=== PATIENT | male | born 1985 | race Caucasian/White ===

== ENCOUNTER 2018-05-13 04:11 | Emergency (ER) | payer MEDICAID ==
[~2018-05-13] VITALS: Ht 180.3 cm; Wt 95.3 kg
[~2018-05-13 04:11] MED LIST: DICY10CA12
[2018-05-13] MEDS ORDERED: KETOROLAC TROMETH 30 MG/ML 1ML VIAL IV ONE (04:45)
[2018-05-13 07:08] LABS: Basophils # (auto) 0 uL; Basophils % (auto) 0.4 % (0.0-2.0); Eosinophils # (auto) 0.1 uL; Eosinophils % (auto) 1.2 % (0.0-7.0); Hematocrit 46.6 % (41.0-53.0); Lymphocytes # (auto) 2.4 uL; Mean Corpuscular Hemoglobin 30.7 pg (28.0-32.0); Mean Corpuscular Hgb Conc. 34.3 g/dL (32.0-36.0); Mean Corpuscular Volume 89.3 fL (80.0-100.0); Monocytes # (auto) 0.9 uL; Monocytes % (auto) 8.4 % (0.0-12.0); Neutrophils # (auto) 7.3 uL; Platelet Count (auto) 269 10^3/uL (140-450); Red Blood Cells 5.21 10^6/uL (4.5-5.90); Red Cell Distribution Width 14.1 % (11.8-14.3); White Blood Cell 10.8 10^3/uL (4.4-10.8)
[2018-05-13 07:33] LABS: Potassium 4.2 mmol/L (3.5-5.1)
[2018-05-13 07:42] LABS: Albumin 3.7 g/dL (3.4-5.0); BUN/Creatinine Ratio 14.9; Bilirubin, Total 0.3 mg/dL (0.2-1.0); Calcium 8.6 mg/dL (8.5-10.1); Total Protein 8.2 g/dL (6.4-8.2)
[2018-05-13 07:45] LABS: Urine Bacteria NONE SEEN /hpf (None Seen); Urine Blood 2+ /uL (Negative); Urine Mucus FEW (None Seen); Urine Specific Gravity 1.026 (1.001-1.035); Urine WBC 2 /hpf (0 - 3)
[2018-05-13] MEDS ORDERED: SODIUM CHLORIDE 0.9% 1,000 ML IVB ONE (08:24)
[2018-05-13] MEDS ORDERED: PROMETHAZINE HCL 25 MG/ML 1ML IV PRN (08:30)
[2018-05-13] MEDS ORDERED: TAMSULOSIN HYDROCHLORIDE 0.4 MG CAP PO ONE (08:30)
[2018-05-13] MEDS ORDERED: HYDROmorphone HCL 2 MG/ML VL IV ONE (08:30)
[2018-05-13] MEDS ORDERED: PROMETHAZINE HCL 25 MG/ML 1ML ONE (08:31)
[2018-05-13 10:10] VITALS: BP 117/68
== END 2018-05-13 12:13 | disposition home or self-care (01) ==
LOC: ER 04:11
DX: N20.1 Calculus of ureter (principal); N13.30 Unspecified hydronephrosis; K76.0 Fatty (change of) liver, not elsewhere classified; E78.5 Hyperlipidemia, unspecified; R11.2 Nausea with vomiting, unspecified
CPT/HCPCS: 36415; 74176; 80053; 81001; 85025; 96361; 96374; 96375; 99284; J1170; J1885; J2550; J7030

== ENCOUNTER 2019-07-14 18:10 | Inpatient (IN) | payer MEDICAID ==
[~2019-07-14] VITALS: Ht 180.3 cm; Wt 111.9 kg
[2019-07-14 18:52] LABS: Urine Bacteria NONE SEEN /hpf (None Seen); Urine Blood 1+ /uL (Negative); Urine Mucus FEW (None Seen); Urine Specific Gravity 1.026 (1.001-1.035); Urine WBC 1 /hpf (0 - 3)
[2019-07-14 18:58] LABS: Basophils # (auto) 0.1 10 ^3/uL (0-0.2); Basophils % (auto) 0.7 % (0.0-2.0); Eosinophils # (auto) 0.3 10 ^3/uL (0-0.8); Eosinophils % (auto) 3.3 % (0.0-7.0); Hematocrit 45.3 % (41.0-53.0); Hemoglobin 15.6 g/dL (13.5-17.5); Lymphocytes # (auto) 3.6 10 ^3/uL (0.4-5.4); Lymphocytes % (auto) 38.6 % (10.0-50.0); Mean Corpuscular Hemoglobin 31.1 pg (28.0-32.0); Mean Corpuscular Hgb Conc. 34.4 g/dL (32.0-36.0); Mean Corpuscular Volume 90.2 fL (80.0-100.0); Monocytes % (auto) 10.6 % (0.0-12.0); Neutrophils # (auto) 4.4 10 ^3/uL (1.6-8.6); Neutrophils % (auto) 46.8 % (37.0-80.0); Nucleated Red Blood Cells % 0.1 %; Platelet Count (auto) 265 10^3/uL (140-450); Red Blood Cells 5.02 10^6/uL (4.5-5.90); Red Cell Distribution Width 13.9 % (11.8-14.3); White Blood Cell 9.4 10^3/uL (4.4-10.8)
[2019-07-14 19:20] LABS: Albumin 3.5 g/dL (3.4-5.0); Calcium 8.7 mg/dL (8.5-10.1); Potassium 4.1 mmol/L (3.5-5.1)
[2019-07-14 19:23] LABS: BUN/Creatinine Ratio 14.9; Bilirubin, Total 0.4 mg/dL (0.2-1.0); Total Protein 8.7 g/dL (6.4-8.2)
[2019-07-14] MEDS ORDERED: LACTATED RINGER'S 1,000 ML IV ONE (20:45)
[2019-07-14] MEDS ORDERED: KETOROLAC TROMETH 15 mg/ml 1ML VL IV ONE (20:45)
[2019-07-14] MEDS ORDERED: ONDANSETRON HCL 4 MG/2 ML VIAL IV ONE (20:45)
[2019-07-14] MEDS ORDERED: LACTATED RINGER S IV ONE (20:45)
[2019-07-14] MEDS ORDERED: TAMSULOSIN HYDROCHLORIDE 0.4 MG CAP PO ONE ×2 (20:45→21:00)
[2019-07-14] MEDS ORDERED: SODIUM CHLORIDE 0.9% 1,000 ML IV ONE (20:45)
[2019-07-14] MEDS ORDERED: PANTOPRAZOLE 40 MG/10 ML VIAL INJ IV ONE (21:00)
[2019-07-14] MEDS ORDERED: LORazepam 0.5 MG TAB PO PRN (21:00)
[2019-07-14] MEDS ORDERED: MORPHINE SULF INJ 2 MG/ML SYRINGE 1ML IV PRN (21:00)
[2019-07-14] MEDS ORDERED: KETOROLAC TROMETH 15 mg/ml 1ML VL IV PRN (21:00)
[2019-07-14] MEDS ORDERED: CIPROFLOXACIN 400MG/200ML 200 ML IV ONE (21:00)
[2019-07-14] MEDS ORDERED: NITROGLYCERIN 0.4 MG SL TAB SL PRN ×2 (21:00)
[2019-07-14] MEDS ORDERED: IBUPROFEN 800 MG TAB PO PRN (21:00)
[2019-07-14] MEDS: HYDROmorphone HCL 2 MG/ML VL IV PRN (21:04)
[2019-07-14] MEDS ORDERED: cloNIDine HCL 0.1 MG TAB PO ONE (21:15)
[2019-07-14] MEDS ORDERED: cloNIDine HCL 0.1 MG TAB PO PRN (21:15)
[2019-07-14] MEDS ORDERED: KETOROLAC TROMETH 30 MG/ML 1ML VIAL ONE (21:36)
--- NOTE | 2019-07-14 22:45 | NUR ---
MS admit from ER ALONA CALLAHAN admitted to MS. Patient oriented to PEYTON KRAMER OCA, primary RN, unit, room, bed, and unit policies regarding patient care and visiting hours. Patient weighed by bedscale and encouraged to call if they need something. All questions and concerns addressed, patient verbalized understanding. Bed in lowest locked position, call light within reach, side rails up x2. Will continue to monitor Q1hr and PRN.
[2019-07-14 22:50] VITALS: BP 130/82
[2019-07-14] MEDS ORDERED: DEXTROSE (50%) 50ML SYRG IV PRN (23:00)
[2019-07-14] MEDS ORDERED: amLODIPine BESYLATE 5 MG TAB PO ONE (23:00)
[2019-07-14] MEDS: ACCU-CHEK COMFORT CURVE STRIP VI SCH (23:46)
[2019-07-14] MEDS: InsuLIN REG 1unit/0.01ml Soln (100units/ml) SC SCH (23:47)
[2019-07-15 05:00] VITALS: BP 133/74
[2019-07-15] MEDS: InsuLIN REG 1unit/0.01ml Soln (100units/ml) SC SCH (06:00)
[2019-07-15] MEDS ORDERED: FUROSEMIDE 20 MG/2 ML VIAL IV SCH (06:00)
[2019-07-15 06:17] LABS: Basophils # (auto) 0 10 ^3/uL (0-0.2); Basophils % (auto) 0.6 % (0.0-2.0); Eosinophils # (auto) 0.3 10 ^3/uL (0-0.8); Eosinophils % (auto) 3.6 % (0.0-7.0); Hematocrit 42.8 % (41.0-53.0); Hemoglobin 14.9 g/dL (13.5-17.5); Lymphocytes # (auto) 3.7 10 ^3/uL (0.4-5.4); Lymphocytes % (auto) 49.8 % (10.0-50.0); Mean Corpuscular Hemoglobin 31.5 pg (28.0-32.0); Mean Corpuscular Hgb Conc. 34.8 g/dL (32.0-36.0); Mean Corpuscular Volume 90.5 fL (80.0-100.0); Monocytes # (auto) 0.8 10 ^3/uL (0-1.3); Monocytes % (auto) 10.7 % (0.0-12.0); Neutrophils # (auto) 2.6 10 ^3/uL (1.6-8.6); Neutrophils % (auto) 35.3 % (37.0-80.0); Nucleated Red Blood Cells % 0.2 %; Platelet Count (auto) 224 10^3/uL (140-450); Red Blood Cells 4.73 10^6/uL (4.5-5.90); Red Cell Distribution Width 13.7 % (11.8-14.3); White Blood Cell 7.5 10^3/uL (4.4-10.8)
[2019-07-15] MEDS: ACCU-CHEK COMFORT CURVE STRIP VI SCH (06:22)
[2019-07-15] MEDS: ONDANSETRON HCL 4 MG/2 ML VIAL IV PRN ×3 (06:23→22:23)
[2019-07-15] MEDS: HYDROmorphone HCL 2 MG/ML VL IV PRN ×3 (06:23→22:23)
[2019-07-15 06:30] LABS: INR 1.07 (0.9-1.15); Partial Thromboplastin Time 29.3 sec (23.64-32.05)
--- NOTE | 2019-07-15 07:40 | NUR ---
Opening note. Patient alert and orientated x4. No SOB or distress noted at this time. POC discussed with patient. No questions at this time. Bed in lowest position. Side rails up x2. Call light within reach. Will continue to monitor.
[2019-07-15 08:00] VITALS: BP 142/82
[2019-07-15 08:39] LABS: Albumin 2.9 g/dL (3.4-5.0); Calcium 8.3 mg/dL (8.5-10.1); Magnesium 2.1 mg/dL (1.6-2.6); Potassium 4.5 mmol/L (3.5-5.1)
[2019-07-15 08:45] LABS: BUN/Creatinine Ratio 15.6; Bilirubin, Total 0.4 mg/dL (0.2-1.0); Total Protein 7.6 g/dL (6.4-8.2)
[2019-07-15] MEDS ORDERED: ENOXAPARIN SOD 40 MG/0.4 ML SYRINGE SC SCH (10:00)
[2019-07-15] MEDS ORDERED: CIPROFLOXACIN 400MG/200ML 200 ML IV SCH (10:00)
[2019-07-15] MEDS ORDERED: PANTOPRAZOLE 40 MG/10 ML VIAL INJ IV SCH (10:00)
[2019-07-15] MEDS: DOCUSATE SOD 100 MG CAP PO SCH (10:00)
[2019-07-15] MEDS: amLODIPine BESYLATE 5 MG TAB PO SCH (10:06)
[2019-07-15] MEDS: SODIUM CHLORIDE 0.9% 1,000 ML IV SCH ×2 (10:15→18:45)
[2019-07-15] MEDS: HYDROcodone-ACET 5/325MG TAB PO PRN (11:32)
[2019-07-15 12:01] VITALS: BP 113/67
[2019-07-15] MEDS ORDERED: ASPI-123 PO (14:31)
--- NOTE | 2019-07-15 15:52 | NUR ---
UROLOGY Cristobal Nance at bedside for Urology consult. New orders received and followed through. Plan of care discussed with patient, verbalized understanding.
[2019-07-15 16:54] VITALS: BP 122/71
[2019-07-15] MEDS: TAMSULOSIN HYDROCHLORIDE 0.4 MG CAP PO SCH (17:44)
--- NOTE | 2019-07-15 19:16 | NUR ---
Care endorsed to PERRY Ramsey, night nurse.
--- NOTE | 2019-07-15 19:30 | NUR ---
Opening Shift Note Assumed care of patient, awake and alert. No S/S of distress/SOB. Instructed on POC and to call for assist PRN. Bed in lowest locked position, call light within reach, side rails up x2. Will continue to monitor for changes Q1hr and PRN.
[2019-07-15 22:00] VITALS: BP 130/78
[2019-07-16] MEDS: SODIUM CHLORIDE 0.9% 1,000 ML IV SCH ×3 (02:15→18:11)
[2019-07-16 05:05] VITALS: BP 128/81
[2019-07-16] MEDS ORDERED: MANNITOL FTV 25% 12.5 GM/50 ML 50 ML IV ONE (06:00)
[2019-07-16 06:07] LABS: Basophils # (auto) 0 10 ^3/uL (0-0.2); Basophils % (auto) 0.4 % (0.0-2.0); Eosinophils # (auto) 0.3 10 ^3/uL (0-0.8); Eosinophils % (auto) 3.3 % (0.0-7.0); Hematocrit 42.9 % (41.0-53.0); Hemoglobin 14.8 g/dL (13.5-17.5); Lymphocytes # (auto) 2.6 10 ^3/uL (0.4-5.4); Lymphocytes % (auto) 33.7 % (10.0-50.0); Mean Corpuscular Hemoglobin 31.2 pg (28.0-32.0); Mean Corpuscular Hgb Conc. 34.5 g/dL (32.0-36.0); Mean Corpuscular Volume 90.5 fL (80.0-100.0); Monocytes # (auto) 0.9 10 ^3/uL (0-1.3); Monocytes % (auto) 11.2 % (0.0-12.0); Neutrophils % (auto) 51.4 % (37.0-80.0); Nucleated Red Blood Cells % 0.1 %; Platelet Count (auto) 214 10^3/uL (140-450); Red Blood Cells 4.74 10^6/uL (4.5-5.90); Red Cell Distribution Width 13.6 % (11.8-14.3); White Blood Cell 7.7 10^3/uL (4.4-10.8)
[2019-07-16 06:33] LABS: Potassium 4.5 mmol/L (3.5-5.1)
[2019-07-16 06:38] LABS: BUN/Creatinine Ratio 13.4; Calcium 8.4 mg/dL (8.5-10.1)
[2019-07-16 08:00] VITALS: BP 122/71
--- NOTE | 2019-07-16 08:00 | NUR ---
Opening note Assumed care of patient. Patient alert and orientated x4. POC and pain management discussed. Patient verbalized understanding.No questions at this time. Bed in lowest position, side rails up x2. call light within reach. Will continue to monitor.
[2019-07-16] MEDS: HYDROcodone-ACET 5/325MG TAB PO PRN ×3 (08:05→22:23)
[2019-07-16] MEDS: DOCUSATE SOD 100 MG CAP PO SCH (09:40)
[2019-07-16] MEDS: amLODIPine BESYLATE 5 MG TAB PO SCH (09:41)
[2019-07-16] MEDS: ONDANSETRON HCL 4 MG/2 ML VIAL IV PRN (09:57)
[2019-07-16] MEDS ORDERED: HYDROmorphone HCL 2 MG/ML VL IV PRN (10:45)
--- NOTE | 2019-07-16 10:53 | NUR ---
ROUNDS Dr Wolf at bedside for rounds, new orders received and followed through. Patient updated on plan of care, verbalized understanding.
[2019-07-16 12:00] VITALS: BP 130/70
[2019-07-16 16:54] VITALS: BP 115/77
[2019-07-16 16:59] VITALS: BP 133/70
[2019-07-16] MEDS: TAMSULOSIN HYDROCHLORIDE 0.4 MG CAP PO SCH (17:34)
--- NOTE | 2019-07-16 19:10 | NUR ---
Opening Shift Note Assumed care of patient, awake, alert and oriented x4, on room air with even and unlabored respirations, no S/S of distress/SOB or pain. Patient able to ambulate and turn independently, bed in lowest locked position, side rails up x2, and call light within reach. Instructed on POC and to call for assist PRN, will continue to monitor for changes Q1hr and PRN.
--- NOTE | 2019-07-16 19:12 | NUR ---
Care endorsed to PERRY Parker, night nurse.
[2019-07-16 22:00] VITALS: BP 131/72
[2019-07-17] MEDS: ONDANSETRON HCL 4 MG/2 ML VIAL IV PRN ×2 (00:02→08:50)
[2019-07-17] MEDS: SODIUM CHLORIDE 0.9% 1,000 ML IV SCH ×2 (00:03→09:26)
[2019-07-17 05:00] VITALS: BP 125/75
[2019-07-17 05:44] LABS: BUN/Creatinine Ratio 14.1; Calcium 8.4 mg/dL (8.5-10.1); Potassium 4.4 mmol/L (3.5-5.1)
[2019-07-17] MEDS: HYDROcodone-ACET 5/325MG TAB PO PRN (08:50)
[2019-07-17 09:00] VITALS: BP_SYST 132; BP_SYST 139; BP_DIAS 79; BP_DIAS 80
[2019-07-17] MEDS: amLODIPine BESYLATE 5 MG TAB PO SCH (09:25)
[2019-07-17] MEDS: DOCUSATE SOD 100 MG CAP PO SCH (09:25)
[2019-07-17 12:59] VITALS: BP 128/74
[2019-07-17 13:00] VITALS: BP 147/81
--- NOTE | 2019-07-17 14:32 | NUR ---
Discharge Went over discharge paperwork with patient. Gave prescriptions to patient. Removed IV intact with no problems. Med Surg patient, no telemetry box. Removed ID band. Patient left in private vehicle with all personal belongings.
== END 2019-07-17 14:35 | disposition home or self-care (01) | DRG 465 ==
LOC: ER 18:11 → OVERFLOW 18:12 → CENTRAL 22:37
PROVIDERS: ADMIT Hospitalist; ATTEND Internal Medicine
DX: N13.2 Hydronephrosis with renal and ureteral calculous obstruction (principal); N17.0 Acute kidney failure with tubular necrosis; K76.0 Fatty (change of) liver, not elsewhere classified; E66.9 Obesity, unspecified; R73.03 Prediabetes; I10 Essential (primary) hypertension; Z83.3 Family history of diabetes mellitus; Z87.442 Personal history of urinary calculi; M54.5 Low back pain; Z68.34 Body mass index [BMI] 34.0-34.9, adult
CPT/HCPCS: 36415; 74176; 80048; 80053; 80061; 81001; 82962; 83036; 83735; 84100; 85025; 85610; 85730; 96365; 96375; C9113; G0378; J1885; J2405

== ENCOUNTER 2019-09-27 22:20 | Inpatient (IN) | payer MEDICAID ==
[~2019-09-27] VITALS: Ht 180.3 cm; Wt 114.3 kg
[~2019-09-27 22:20] MED LIST changes: +ASPI-123 PO; -DICY10CA12
[2019-09-27] MEDS ORDERED: KETOROLAC TROMETH 30 MG/ML 1ML VIAL IV ONE (23:15)
[2019-09-27] MEDS ORDERED: HYDROmorphone HCL 2 MG/ML VL IV ONE (23:15)
[2019-09-27] MEDS ORDERED: ONDANSETRON HCL 4 MG/2 ML VIAL IV ONE (23:15)
[2019-09-27 23:43] LABS: Basophils # (auto) 0.1 10 ^3/uL (0-0.2); Basophils % (auto) 0.6 % (0.0-2.0); Eosinophils # (auto) 0 10 ^3/uL (0-0.8); Eosinophils % (auto) 0.2 % (0.0-7.0); Hematocrit 45.9 % (41.0-53.0); Hemoglobin 15.3 g/dL (13.5-17.5); Lymphocytes # (auto) 1.8 10 ^3/uL (0.4-5.4); Lymphocytes % (auto) 12.9 % (10.0-50.0); Mean Corpuscular Hgb Conc. 33.5 g/dL (32.0-36.0); Mean Corpuscular Volume 89.6 fL (80.0-100.0); Monocytes # (auto) 0.8 10 ^3/uL (0-1.3); Monocytes % (auto) 5.9 % (0.0-12.0); Neutrophils # (auto) 11.1 10 ^3/uL (1.6-8.6); Neutrophils % (auto) 80.4 % (37.0-80.0); Nucleated Red Blood Cells % 0.1 %; Platelet Count (auto) 264 10^3/uL (140-450); Red Blood Cells 5.12 10^6/uL (4.5-5.90); Red Cell Distribution Width 13.7 % (11.8-14.3); White Blood Cell 13.7 10^3/uL (4.4-10.8)
[2019-09-28 00:02] LABS: Albumin 3.6 g/dL (3.4-5.0); Calcium 8.9 mg/dL (8.5-10.1); Potassium 4.2 mmol/L (3.5-5.1)
[2019-09-28 00:05] LABS: BUN/Creatinine Ratio 15.2
[2019-09-28 00:07] LABS: Bilirubin, Total 0.4 mg/dL (0.2-1.0); Total Protein 8.7 g/dL (6.4-8.2)
[2019-09-28 02:14] LABS: Urine Bacteria FEW /hpf (None Seen); Urine Blood 1+ /uL (Negative); Urine Mucus FEW (None Seen); Urine Specific Gravity 1.023 (1.001-1.035); Urine WBC 2 /hpf (0 - 3)
[2019-09-28] MEDS ORDERED: SODIUM CHLORIDE 0.9% 1,000 ML IV ONE ×2 (04:00→17:00)
[2019-09-28] MEDS ORDERED: DOCUSATE SOD 100 MG CAP PO PRN (04:00)
[2019-09-28] MEDS ORDERED: ACETAMINOPHEN 325 MG TAB PO PRN (04:00)
[2019-09-28] MEDS ORDERED: DEXTROSE (50%) 50ML SYRG IV PRN (04:00)
[2019-09-28] MEDS ORDERED: HYDROcodone-ACET 5/325MG TAB PO PRN (04:00)
[2019-09-28] MEDS ORDERED: InsuLIN REG 1unit/0.01ml Soln (100units/ml) SC SCH (06:00)
[2019-09-28] MEDS ORDERED: ACCU-CHEK COMFORT CURVE STRIP VI SCH (06:00)
[2019-09-28 06:45] LABS: Basophils # (auto) 0.1 10 ^3/uL (0-0.2); Basophils % (auto) 0.6 % (0.0-2.0); Eosinophils # (auto) 0.1 10 ^3/uL (0-0.8); Eosinophils % (auto) 1.2 % (0.0-7.0); Hematocrit 42.7 % (41.0-53.0); Hemoglobin 14.3 g/dL (13.5-17.5); Lymphocytes % (auto) 33.6 % (10.0-50.0); Mean Corpuscular Hemoglobin 30.1 pg (28.0-32.0); Mean Corpuscular Hgb Conc. 33.6 g/dL (32.0-36.0); Mean Corpuscular Volume 89.7 fL (80.0-100.0); Monocytes % (auto) 8.3 % (0.0-12.0); Neutrophils # (auto) 6.7 10 ^3/uL (1.6-8.6); Neutrophils % (auto) 56.3 % (37.0-80.0); Platelet Count (auto) 247 10^3/uL (140-450); Red Blood Cells 4.76 10^6/uL (4.5-5.90); Red Cell Distribution Width 13.8 % (11.8-14.3)
[2019-09-28 06:49] LABS: Potassium 3.8 mmol/L (3.5-5.1)
[2019-09-28 06:59] LABS: BUN/Creatinine Ratio 16.2; Calcium 8.7 mg/dL (8.5-10.1)
[2019-09-28] MEDS: TAMSULOSIN HYDROCHLORIDE 0.4 MG CAP PO SCH (07:30)
[2019-09-28] MEDS: FINASTERIDE 5 MG TAB PO SCH (07:31)
[2019-09-28] MEDS: cefTRIAXone 1GM/50ML D5W 50 ML IV SCH (07:31)
[2019-09-28 13:38] LABS: INR 1.05 (0.9-1.15)
[2019-09-28] MEDS ORDERED: MANNITOL FTV 25% 12.5 GM/50 ML 50 ML IV ONE (14:15)
--- NOTE | 2019-09-28 14:15 | NUR ---
Telemetry admit from ER ALONA CALLAHAN admitted to Telemetry unit after SBAR received. Patient oriented to NIA ABDI, primary RN, unit, room, bed, and unit policies regarding patient care and visiting hours. Patient now on continuous telemetry monitoring. All questions and concerns addressed, patient verbalized understanding.
[2019-09-28] MEDS: MORPHINE SULF INJ 2 MG/ML SYRINGE 1ML IV PRN ×2 (16:34→20:53)
[2019-09-28] MEDS: ONDANSETRON HCL 4 MG/2 ML VIAL IV PRN ×2 (16:34→20:53)
[2019-09-28 16:54] VITALS: BP 146/76
--- NOTE | 2019-09-28 17:00 | NUR ---
NEW ORDER FROM DR ANTHONY UROLOGY FOR NS BOLUS TO BE CARRIED OUT.
[2019-09-28] MEDS ORDERED: TAM04C PO (17:07)
[2019-09-28] MEDS ORDERED: HYDR-4833 PO (17:07)
[2019-09-28] MEDS ORDERED: CIPR500T4 PO (17:07)
--- NOTE | 2019-09-28 17:43 | NUR ---
PATIENT WAS TESTED FOR COVID-19 AT [facility] DURING PRE OP APPOINTMENT. PATIENT REPORTS HE IS UNAWARE OF THE RESULTS. PATIENT STATES, "THEY TOLD ME I WOULDN'T BE ABLE TO GET MY PROCEDURE IF I WAS POSITIVE SO I'M ASSUMING I HAD NEGATIVE RESULTS." Addendum: 09/28/19 at 1744 by Rosy León RN Amended: Links added.
[2019-09-28] MEDS: ATORVASTATIN 20 MG TAB PO SCH (18:00)
--- NOTE | 2019-09-28 19:23 | NUR ---
ENDORSED CARE TO NIGHT RN.
--- NOTE | 2019-09-28 20:39 | NUR ---
URINE CULTURE SENT TO LAB AT THIS TIME.
[2019-09-28 22:00] VITALS: BP 127/72
[2019-09-29 05:26] VITALS: BP 134/78
[2019-09-29 06:13] LABS: Basophils # (auto) 0.1 10 ^3/uL (0-0.2); Basophils % (auto) 0.6 % (0.0-2.0); Eosinophils # (auto) 0.3 10 ^3/uL (0-0.8); Eosinophils % (auto) 3.3 % (0.0-7.0); Hematocrit 41.5 % (41.0-53.0); Hemoglobin 14.1 g/dL (13.5-17.5); Lymphocytes # (auto) 3.5 10 ^3/uL (0.4-5.4); Lymphocytes % (auto) 41.8 % (10.0-50.0); Mean Corpuscular Hemoglobin 30.7 pg (28.0-32.0); Mean Corpuscular Hgb Conc. 33.9 g/dL (32.0-36.0); Mean Corpuscular Volume 90.4 fL (80.0-100.0); Monocytes # (auto) 0.7 10 ^3/uL (0-1.3); Monocytes % (auto) 8.7 % (0.0-12.0); Neutrophils # (auto) 3.8 10 ^3/uL (1.6-8.6); Neutrophils % (auto) 45.6 % (37.0-80.0); Nucleated Red Blood Cells % 0.2 %; Platelet Count (auto) 226 10^3/uL (140-450); Red Blood Cells 4.59 10^6/uL (4.5-5.90); Red Cell Distribution Width 13.7 % (11.8-14.3); White Blood Cell 8.4 10^3/uL (4.4-10.8)
[2019-09-29 06:31] LABS: BUN/Creatinine Ratio 18.3; Calcium 8.3 mg/dL (8.5-10.1); Potassium 4.2 mmol/L (3.5-5.1)
[2019-09-29] MEDS: MORPHINE SULF INJ 2 MG/ML SYRINGE 1ML IV PRN ×3 (06:59→16:40)
--- NOTE | 2019-09-29 08:00 | NUR ---
OPENING NOTE ASSUMED CARE OF PT. NO S/S OF DISTRESS OR SOB AT THIS TIME. PATIENT STATES PAIN AT A LEVEL OF 2 OUT OF 10 BUT SAYS THAT IT IS MOSTLY DISCOMFORT FROM THE CATHETER BUT NO OTHER PAIN. POC DISCUSSED WITH PT. SAFETY MEASURES IN PLACE, CALL LIGHT WITHIN REACH. PT ADVISED TO CALL FOR ASSISTANCE OR QUESTIONS. WILL CONTINUE TO MONITOR Q1H AND PRN.
[2019-09-29 09:00] VITALS: BP 149/81
[2019-09-29] MEDS: cefTRIAXone 1GM/50ML D5W 50 ML IV SCH (09:36)
[2019-09-29] MEDS: TAMSULOSIN HYDROCHLORIDE 0.4 MG CAP PO SCH (09:36)
[2019-09-29] MEDS: FINASTERIDE 5 MG TAB PO SCH (09:36)
[2019-09-29] MEDS: ONDANSETRON HCL 4 MG/2 ML VIAL IV PRN ×2 (12:11→16:40)
[2019-09-29 13:00] VITALS: BP 133/80
--- NOTE | 2019-09-29 14:11 | NUR ---
Cunha catheter dc'd Order to discontinue cunha catheter. Cunha dc'd with clean technique following deflation of balloon. Patient tolerated well with no complaints of pain. Continue care. 2100ml output recorded.
[2019-09-29] MEDS: SODIUM CHLORIDE 0.9% 1,000 ML IV SCH (14:15)
[2019-09-29 16:35] VITALS: BP 141/86
[2019-09-29] MEDS ORDERED: KETOROLAC TROMETH 30 MG/ML 1ML VIAL IV PRN (17:30)
[2019-09-29] MEDS: PHENAZOPYRIDINE HCL 100 MG TAB PO SCH (17:58)
[2019-09-29] MEDS: ATORVASTATIN 20 MG TAB PO SCH (18:00)
--- NOTE | 2019-09-29 18:07 | NUR ---
REFUSED LIPITOR, STATED I DONT HAVE HIGH CHOLESTEROL.
--- NOTE | 2019-09-29 19:08 | NUR ---
endorsed care to night rn
--- NOTE | 2019-09-29 19:08 | NUR ---
Opening shift note: Assumed care of patient. Patient awake, alert and oriented x 4. No s/s of SOB or distress, patient denies pain. Bed in lowest locked position with two side rails raised and call grider within reach. Instructed on POC and encouraged to use call grider for assistance, all questions and concerns addressed, patient verbalized understanding. Will continue to monitor Q1 hr and PRN.
[2019-09-29 20:00] VITALS: BP 133/75
--- NOTE | 2019-09-29 20:20 | NUR ---
Patient states he noticed some raised red welts/redness on his neck and chest in the mirror when he went to the bathroom. No s/s of SOB or distress, respirations are even and unlabored and patient denies any throat tightness or difficulty breathing. Redness noted to the upper neck and chest. Hospitalist paged, awaiting call back.
--- NOTE | 2019-09-29 21:27 | NUR ---
HOSPITALIST: Spoke with USABILITY STRATEGIST Saji Zapata. New orders received, see EMAR for details. Will note new orders.
[2019-09-29] MEDS ORDERED: diphenhdrAMINE HCL 50 MG/1 ML VL IV ONE (21:30)
[2019-09-29 22:00] VITALS: BP 133/75
--- NOTE | 2019-09-30 02:03 | NUR ---
Care endorsed to Traci AMADOR.
--- NOTE | 2019-09-30 02:07 | NUR ---
Received report from Janay Hill to assume care.
[2019-09-30] MEDS: SODIUM CHLORIDE 0.9% 1,000 ML IV SCH (03:35)
[2019-09-30 05:00] VITALS: BP 94/72
[2019-09-30 06:30] LABS: BUN/Creatinine Ratio 17.2; Calcium 8.2 mg/dL (8.5-10.1); Magnesium 2.2 mg/dL (1.6-2.6); Potassium 3.8 mmol/L (3.5-5.1)
--- NOTE | 2019-09-30 07:42 | NUR ---
Report given to Noemi Cormier, patient is resting no respiratory distress.
[2019-09-30] MEDS ORDERED: MANNITOL FTV 25% 12.5 GM/50 ML 50 ML IV ONE (08:15)
[2019-09-30] MEDS: PHENAZOPYRIDINE HCL 100 MG TAB PO SCH ×3 (08:17→18:00)
[2019-09-30 08:39] VITALS: BP 139/87
[2019-09-30] MEDS: FINASTERIDE 5 MG TAB PO SCH (09:15)
[2019-09-30] MEDS: cefTRIAXone 1GM/50ML D5W 50 ML IV SCH (09:15)
[2019-09-30] MEDS: TAMSULOSIN HYDROCHLORIDE 0.4 MG CAP PO SCH (09:15)
[2019-09-30 13:00] VITALS: BP 136/74
--- NOTE | 2019-09-30 13:30 | NUR ---
Received a call from Dr. Lorenzana of urology, patient may be discharged from urology standpoint.
[2019-09-30 16:40] VITALS: BP 143/77
[2019-09-30 17:47] VITALS: BP 143/77
[2019-09-30] MEDS: ATORVASTATIN 20 MG TAB PO SCH (18:00)
--- NOTE | 2019-09-30 19:00 | NUR ---
Patient is for discharge waiting for to pick him up. IV removed and applied pressure dressing. Gave reports to cartoon artist RN.
--- NOTE | 2019-09-30 19:41 | NUR ---
PATIENT'S HERE AT HOSPITAL. PATIENT TAKEN DOWN BY MORNING SHOW PRODUCER. PATIENT DC'D AT THIS TIME.
== END 2019-09-30 19:40 | disposition home or self-care (01) | DRG 465 ==
LOC: ER 22:20 → OVERFLOW 22:21 → WEST WING 09-28 14:31
PROVIDERS: ADMIT Hospitalist; ATTEND Internal Medicine
DX: N13.2 Hydronephrosis with renal and ureteral calculous obstruction (principal); N17.0 Acute kidney failure with tubular necrosis; R65.10 Systemic inflammatory response syndrome (SIRS) of non-infectious origin without acute organ dysfunction; N13.9 Obstructive and reflux uropathy, unspecified; Z83.3 Family history of diabetes mellitus
CPT/HCPCS: 36415; 74018; 74176; 80048; 80053; 81001; 82962; 83036; 83735; 85025; 85610; 87086; 96361; 96374; 96375; G0378; J0696; J1885; J2405

== ENCOUNTER 2021-12-14 14:46 | Emergency (ER) | payer MEDICAID ==
[~2021-12-14] VITALS: Ht 180.3 cm; Wt 112.2 kg
[~2021-12-14 14:46] MED LIST changes: -ASPI-123 PO; +CIPR500T4 PO; +HYDR-4833 PO; +TAM04C PO
[2021-12-14 15:15] LABS: Basophils # (auto) 0.1 10 ^3/uL (0-0.2); Basophils % (auto) 0.9 % (0.0-2.0); Eosinophils # (auto) 0.3 10 ^3/uL (0-0.8); Eosinophils % (auto) 2.8 % (0.0-7.0); Hematocrit 48.6 % (41.0-53.0); Hemoglobin 16.2 g/dL (13.5-17.5); Lymphocytes # (auto) 4.9 10 ^3/uL (0.4-5.4); Lymphocytes % (auto) 47.2 % (10.0-50.0); Mean Corpuscular Hemoglobin 29.7 pg (28.0-32.0); Mean Corpuscular Hgb Conc. 33.4 g/dL (32.0-36.0); Mean Corpuscular Volume 88.9 fL (80.0-100.0); Monocytes # (auto) 1.1 10 ^3/uL (0-1.3); Monocytes % (auto) 10.9 % (0.0-12.0); Neutrophils % (auto) 38.2 % (37.0-80.0); Red Blood Cells 5.46 10^6/uL (4.5-5.90); White Blood Cell 10.4 10^3/uL (4.4-10.8)
[2021-12-14] MEDS ORDERED: ASPirin 81 mg TAB PO ONE (15:15)
[2021-12-14 15:36] LABS: Albumin 3.6 g/dL (3.4-5.0); Calcium 8.9 mg/dL (8.5-10.1)
[2021-12-14 15:39] LABS: BUN/Creatinine Ratio 13.3; Bilirubin, Total 0.4 mg/dL (0.2-1.0); Total Protein 7.8 g/dL (6.4-8.2)
[2021-12-14 15:50] LABS: INR 1.02 (0.9-1.15); Partial Thromboplastin Time 29.5 sec (24.6-33.4)
[2021-12-14] MEDS ORDERED: cloNIDine HCL 0.1 MG TAB PO ONE (17:00)
[2021-12-14 18:32] VITALS: BP 169/109
== END 2021-12-14 18:38 | disposition home or self-care (01) ==
LOC: ER 14:49
DX: R07.89 Other chest pain (principal); I16.0 Hypertensive urgency; I10 Essential (primary) hypertension; E78.5 Hyperlipidemia, unspecified; Z79.899 Other long term (current) drug therapy
CPT/HCPCS: 36415; 71045; 80053; 83880; 84484; 85025; 85379; 85610; 85730; 93005

== ENCOUNTER 2022-08-12 12:49 | Inpatient (IN) | payer MEDICAID ==
[~2022-08-12] VITALS: Ht 180.3 cm; Wt 155.0 kg
[2022-08-12] MEDS ORDERED: KETOROLAC TROMETH 30 MG/ML 1ML VIAL IV ONE (14:15)
[2022-08-12] MEDS ORDERED: ONDANSETRON HCL 4 MG/2 ML VIAL IV ONE (14:15)
[2022-08-12] MEDS ORDERED: SODIUM CHLORIDE 0.9% 1,000 ML IVB ONE (14:15)
[2022-08-12 14:26] LABS: Basophils # (auto) 0.1 10 ^3/uL (0-0.2); Basophils % (auto) 0.3 % (0.0-2.0); Eosinophils # (auto) 0.1 10 ^3/uL (0-0.8); Eosinophils % (auto) 0.4 % (0.0-7.0); Hematocrit 46.1 % (41.0-53.0); Hemoglobin 15.5 g/dL (13.5-17.5); Lymphocytes # (auto) 1.9 10 ^3/uL (0.4-5.4); Lymphocytes % (auto) 13.3 % (10.0-50.0); Mean Corpuscular Hemoglobin 29.9 pg (28.0-32.0); Mean Corpuscular Hgb Conc. 33.5 g/dL (32.0-36.0); Mean Corpuscular Volume 89.1 fL (80.0-100.0); Monocytes # (auto) 1.1 10 ^3/uL (0-1.3); Monocytes % (auto) 7.9 % (0.0-12.0); Neutrophils # (auto) 11.4 10 ^3/uL (1.6-8.6); Neutrophils % (auto) 78.1 % (37.0-80.0); Nucleated Red Blood Cells % 0.2 %; Red Blood Cells 5.18 10^6/uL (4.5-5.90); Red Cell Distribution Width 13.8 % (11.8-14.3); White Blood Cell 14.6 10^3/uL (4.4-10.8)
[2022-08-12 14:37] LABS: Urine Bacteria NONE SEEN /hpf (None Seen); Urine Blood 2+ /uL (Negative); Urine Hyaline Cast FEW /lpf (0 - 2); Urine Mucus FEW (None Seen); Urine Specific Gravity 1.028 (1.001-1.035); Urine WBC 1 /hpf (0 - 3)
[2022-08-12 14:44] LABS: Potassium 4.3 mmol/L (3.5-5.1)
[2022-08-12 14:52] LABS: Albumin 3.4 g/dL (3.4-5.0); BUN/Creatinine Ratio 18.9 (10.0-20.0); Bilirubin, Total 0.4 mg/dL (0.2-1.0); Calcium 8.2 mg/dL (8.5-10.1); Total Protein 7.8 g/dL (6.4-8.2)
[2022-08-12] MEDS ORDERED: NITROGLYCERIN 0.4 MG SL TAB SL PRN (16:00)
[2022-08-12] MEDS ORDERED: MORPHINE SULFATE INJ 2 MG/ml SYRG IV PRN (16:00)
[2022-08-12] MEDS ORDERED: ACETAMINOPHEN 325 MG TAB PO PRN (16:00)
[2022-08-12] MEDS ORDERED: SIMV10TA84 PO (16:06)
[2022-08-12] MEDS ORDERED: ESCI10TA PO (16:06)
[2022-08-12] MEDS ORDERED: TAMSULOSIN HYDROCHLORIDE 0.4 MG CAP PO ONE (16:15)
[2022-08-12] MEDS ORDERED: hydrALAZINE HCL 20 MG/ML VL IV PRN (16:15)
[2022-08-12] MEDS: cefTRIAXone 1GM/50ML D5W 50 ML IV SCH (17:17)
[2022-08-12] MEDS: SODIUM CHLORIDE 0.9% 1,000 ML IV SCH (18:59)
[2022-08-12] MEDS: ONDANSETRON HCL 4 MG/2 ML VIAL IV PRN (21:47)
[2022-08-12 22:14] VITALS: BP 124/79
[2022-08-12] MEDS: PRAVASTATIN SODIUM 20 MG TAB PO SCH (22:25)
[2022-08-13] MEDS: SODIUM CHLORIDE 0.9% 1,000 ML IV SCH ×3 (01:02→19:30)
[2022-08-13] MEDS: ONDANSETRON HCL 4 MG/2 ML VIAL IV PRN ×2 (04:45→20:06)
[2022-08-13] MEDS: MORPHINE SULFATE INJ 2 MG/ml SYRG IV PRN ×2 (04:46→20:07)
[2022-08-13 05:00] VITALS: BP_SYST 131; BP_SYST 177; BP_DIAS 84; BP_DIAS 87
[2022-08-13 06:26] LABS: Basophils # (auto) 0 10 ^3/uL (0-0.2); Basophils % (auto) 0.3 % (0.0-2.0); Eosinophils # (auto) 0.2 10 ^3/uL (0-0.8); Eosinophils % (auto) 1.9 % (0.0-7.0); Hematocrit 42.3 % (41.0-53.0); Hemoglobin 14.4 g/dL (13.5-17.5); Lymphocytes # (auto) 3.5 10 ^3/uL (0.4-5.4); Lymphocytes % (auto) 32.3 % (10.0-50.0); Mean Corpuscular Hemoglobin 30.6 pg (28.0-32.0); Mean Corpuscular Volume 90.1 fL (80.0-100.0); Monocytes # (auto) 1.3 10 ^3/uL (0-1.3); Monocytes % (auto) 11.6 % (0.0-12.0); Neutrophils # (auto) 5.8 10 ^3/uL (1.6-8.6); Neutrophils % (auto) 53.9 % (37.0-80.0); Nucleated Red Blood Cells % 0.2 %; Potassium 3.7 mmol/L (3.5-5.1); Red Blood Cells 4.69 10^6/uL (4.5-5.90); Red Cell Distribution Width 13.7 % (11.8-14.3); White Blood Cell 10.8 10^3/uL (4.4-10.8)
[2022-08-13 06:34] LABS: Albumin 2.8 g/dL (3.4-5.0); Bilirubin, Total 0.4 mg/dL (0.2-1.0); Total Protein 6.9 g/dL (6.4-8.2)
[2022-08-13 09:00] VITALS: BP 120/78
[2022-08-13] MEDS: cefTRIAXone 1GM/50ML D5W 50 ML IV SCH (09:24)
[2022-08-13] MEDS: CITALOPRAM HYDROBR 20 MG TAB PO SCH (10:12)
[2022-08-13] MEDS: TAMSULOSIN HYDROCHLORIDE 0.4 MG CAP PO SCH (10:12)
[2022-08-13 13:00] VITALS: BP 139/75
[2022-08-13 17:00] VITALS: BP 125/84
[2022-08-13] MEDS: HYDROcodone-ACET 5/325MG TAB PO PRN (21:31)
[2022-08-13] MEDS: PRAVASTATIN SODIUM 20 MG TAB PO SCH (21:31)
[2022-08-13 22:00] VITALS: BP 163/76
[2022-08-14] MEDS: MORPHINE SULFATE INJ 2 MG/ml SYRG IV PRN (03:57)
[2022-08-14] MEDS: ONDANSETRON HCL 4 MG/2 ML VIAL IV PRN ×4 (03:57→19:48)
[2022-08-14 05:00] VITALS: BP 143/87
[2022-08-14] MEDS: SODIUM CHLORIDE 0.9% 1,000 ML IV SCH ×3 (06:00→18:26)
[2022-08-14] MEDS: cefTRIAXone 1GM/50ML D5W 50 ML IV SCH (08:48)
[2022-08-14] MEDS: HYDROcodone-ACET 5/325MG TAB PO PRN ×2 (08:49→15:09)
[2022-08-14 09:00] VITALS: BP 143/92
[2022-08-14] MEDS: TAMSULOSIN HYDROCHLORIDE 0.4 MG CAP PO SCH (10:23)
[2022-08-14] MEDS: CITALOPRAM HYDROBR 20 MG TAB PO SCH (10:23)
[2022-08-14 13:00] VITALS: BP 134/81
[2022-08-14] MEDS ORDERED: MANNITOL FTV 25% 12.5 GM/50 ML 50 ML IV ONE (16:45)
[2022-08-14 17:04] VITALS: BP 134/71
[2022-08-14] MEDS: KETOROLAC TROMETH 30 MG/ML 1ML VIAL IV PRN (19:48)
[2022-08-14 20:23] LABS: INR 0.97 (0.9-1.15)
[2022-08-14] MEDS: PRAVASTATIN SODIUM 20 MG TAB PO SCH (21:54)
[2022-08-14 22:00] VITALS: BP 147/85
[2022-08-15] MEDS: SODIUM CHLORIDE 0.9% 1,000 ML IV SCH ×3 (03:19→17:55)
[2022-08-15 05:00] VITALS: BP 135/88
[2022-08-15 09:00] VITALS: BP 124/87
[2022-08-15 09:42] LABS: BUN/Creatinine Ratio 13.7 (10.0-20.0); Calcium 8.3 mg/dL (8.5-10.1); Potassium 3.8 mmol/L (3.5-5.1)
[2022-08-15] MEDS: cefTRIAXone 1GM/50ML D5W 50 ML IV SCH (09:48)
[2022-08-15] MEDS: CITALOPRAM HYDROBR 20 MG TAB PO SCH (09:48)
[2022-08-15] MEDS: KETOROLAC TROMETH 30 MG/ML 1ML VIAL IV PRN ×2 (09:48→22:18)
[2022-08-15] MEDS: TAMSULOSIN HYDROCHLORIDE 0.4 MG CAP PO SCH (09:48)
[2022-08-15] MEDS: ONDANSETRON HCL 4 MG/2 ML VIAL IV PRN ×2 (10:10→22:19)
[2022-08-15 13:00] VITALS: BP_SYST 120; BP_SYST 136; BP_DIAS 78; BP_DIAS 80
[2022-08-15 17:00] VITALS: BP 120/81
[2022-08-15 22:00] VITALS: BP 151/90
[2022-08-15] MEDS: PRAVASTATIN SODIUM 20 MG TAB PO SCH (22:19)
[2022-08-15 23:30] VITALS: BP 133/68
[2022-08-16 02:57] LABS: Urine Bacteria NONE SEEN /hpf (None Seen); Urine Blood Negative /uL (Negative); Urine Specific Gravity 1.011 (1.001-1.035); Urine WBC 1 /hpf (0 - 3)
[2022-08-16] MEDS: SODIUM CHLORIDE 0.9% 1,000 ML IV SCH ×3 (03:20→20:00)
[2022-08-16 05:00] VITALS: BP 140/75
[2022-08-16 09:00] VITALS: BP 135/86
[2022-08-16] MEDS: TAMSULOSIN HYDROCHLORIDE 0.4 MG CAP PO SCH (10:00)
[2022-08-16] MEDS: CITALOPRAM HYDROBR 20 MG TAB PO SCH (10:00)
[2022-08-16] MEDS: cefTRIAXone 1GM/50ML D5W 50 ML IV SCH (10:44)
[2022-08-16] MEDS: ONDANSETRON HCL 4 MG/2 ML VIAL IV PRN ×2 (10:48→18:37)
[2022-08-16] MEDS: KETOROLAC TROMETH 30 MG/ML 1ML VIAL IV PRN ×2 (10:48→18:37)
[2022-08-16 13:00] VITALS: BP 137/79
[2022-08-16] MEDS ORDERED: ceFAZolin 1GM/50ML 100 ML IV ONE (13:17)
[2022-08-16] MEDS ORDERED: LIDOCAINE 2% (LOCAL ANESTH.) PF 5ml SDV ONE (13:33)
[2022-08-16] MEDS ORDERED: DexAMETHasone SOD PHOS 10MG/1ML VIAL INJ ONE (13:33)
[2022-08-16] MEDS ORDERED: PROPOFOL 10 MG/ML 20 ML IV ONE (13:33)
[2022-08-16] MEDS ORDERED: GLYCOPYRROLATE 0.2 MG/ML 1ML VIAL ONE (13:33)
[2022-08-16] MEDS ORDERED: ONDANSETRON HCL 4 MG/2 ML VIAL ONE (13:33)
[2022-08-16] MEDS ORDERED: KETOROLAC TROMETH 30 MG/ML 1ML VIAL ONE (13:33)
[2022-08-16] MEDS ORDERED: PHENYLEPHRINE HCL 10 MG/ML VL ONE (14:32)
[2022-08-16] MEDS ORDERED: ceFAZolin 1GM VL ONE (14:32)
[2022-08-16] MEDS ORDERED: FUROSEMIDE 20 MG/2 ML VIAL ONE (14:36)
[2022-08-16] MEDS ORDERED: ePHEDrine SULFATE 50 MG/ML AMP ONE (14:43)
[2022-08-16] MEDS ORDERED: MANNITOL FTV 25% 12.5 GM/50 ML 50 ML IV ONE (14:45)
[2022-08-16] MEDS ORDERED: ONDANSETRON HCL 4 MG/2 ML VIAL IV PRN (15:15)
[2022-08-16] MEDS ORDERED: NALOXONE HCL 0.4 MG/ML VIAL IV PRN (15:15)
[2022-08-16] MEDS ORDERED: fentaNYL CITRATE 100 MCG/2 ML VL IV PRN (15:15)
[2022-08-16] MEDS ORDERED: HYDROmorphone HCL 2 MG/ML VL/or syr IV PRN (15:15)
[2022-08-16] MEDS ORDERED: FLUMAZENIL 0.1 MG/ML INJ 10ML MDV IV PRN (15:15)
[2022-08-16] MEDS ORDERED: ePHEDrine SULFATE 50 MG/ML AMP IV PRN (15:15)
[2022-08-16] MEDS ORDERED: hydrALAZINE HCL 20 MG/ML VL IV PRN (15:15)
[2022-08-16] MEDS ORDERED: LABETALOL HCL 5 MG/ML 4ML SYRINGE IV PRN (15:15)
[2022-08-16 17:00] VITALS: BP 132/83
[2022-08-16] MEDS: HYDROcodone-ACET 5/325MG TAB PO PRN (20:29)
[2022-08-16] MEDS: PRAVASTATIN SODIUM 20 MG TAB PO SCH (22:04)
[2022-08-16 22:34] VITALS: BP 142/99
[2022-08-17] MEDS: SODIUM CHLORIDE 0.9% 1,000 ML IV SCH ×2 (04:42→12:40)
[2022-08-17 05:00] VITALS: BP 127/69
[2022-08-17 08:30] VITALS: BP 138/80
[2022-08-17 09:00] VITALS: BP 138/80
[2022-08-17] MEDS: TAMSULOSIN HYDROCHLORIDE 0.4 MG CAP PO SCH (09:04)
[2022-08-17] MEDS: CITALOPRAM HYDROBR 20 MG TAB PO SCH (09:04)
[2022-08-17] MEDS: cefTRIAXone 1GM/50ML D5W 50 ML IV SCH (09:04)
[2022-08-17] MEDS: ONDANSETRON HCL 4 MG/2 ML VIAL IV PRN ×2 (10:54→16:43)
[2022-08-17] MEDS: KETOROLAC TROMETH 30 MG/ML 1ML VIAL IV PRN (10:54)
[2022-08-17] MEDS ORDERED: HYDR-4902 PO (12:43)
[2022-08-17 13:00] VITALS: BP 126/73
[2022-08-17 15:52] VITALS: BP 126/73
[2022-08-17] MEDS: HYDROcodone-ACET 5/325MG TAB PO PRN (17:19)
== END 2022-08-17 19:00 | disposition home or self-care (01) | DRG 446 ==
LOC: ER 12:49 → OVERFLOW 16:06 → WEST WING 21:55
PROVIDERS: ADMIT Nurse Practitioner Family; ATTEND Internal Medicine
PROC: 0TC78ZZ Extirpation of Matter from Left Ureter, Via Natural or Artificial Opening Endoscopic (ICD-10-PCS; principal; 2022-08-16 14:04)
DX: N13.6 Pyonephrosis (principal); N17.0 Acute kidney failure with tubular necrosis; E87.1 Hypo-osmolality and hyponatremia; K76.0 Fatty (change of) liver, not elsewhere classified; J98.11 Atelectasis; E66.01 Morbid (severe) obesity due to excess calories; E86.0 Dehydration; R73.03 Prediabetes; I10 Essential (primary) hypertension; F41.9 Anxiety disorder, unspecified; E78.5 Hyperlipidemia, unspecified; N20.1 Calculus of ureter; Z83.3 Family history of diabetes mellitus; Z68.37 Body mass index [BMI] 37.0-37.9, adult
CPT/HCPCS: 36415; 74018; 74176; 76775; 80048; 80053; 80061; 81001; 82962; 83036; 83690; 85025; 85610; 86850; 86900; 86901; G0378; J0690; J0696; J1100; J1885; J2001; J2405; J2704